=== PATIENT | male | born 1980 | race Caucasian/White ===

== ENCOUNTER 2025-02-22 09:09 | Emergency (ER) | payer MEDICAID, OTHER ==
[2025-02-22 09:29] VITALS: BP 154/97; PULSE 49
[2025-02-22] MEDS: Lidocaine/Epineph/Tetracaine 3 ML Syringe TOP ONE (09:33)
[2025-02-22] MEDS: Diphtheria,Pertussis(Acell),Tetanus Vaccine 0.5 ML Syringe IM ONE (09:35)
== END 2025-02-22 11:25 | disposition home or self-care (01) ==
LOC: JP.ED 09:09
DX: S01.112A Laceration without foreign body of left eyelid and periocular area, initial encounter (principal); Z23 Encounter for immunization; X58.XXXA Exposure to other specified factors, initial encounter
CPT/HCPCS: 12013; 90471; 90715; 99282; A9270